=== PATIENT | male | born 2000 | race Caucasian/White ===

== ENCOUNTER 2021-05-27 20:09 | Emergency (ER) | payer OTHER ==
[~2021-05-27] VITALS: Ht 170.2 cm; Wt 72.0 kg
[2021-05-27] MEDS ORDERED: LORAZEPAM 2MG/ML CPJ IV ONE (21:15)
[2021-05-27 22:16] LABS: BASOPHILS % 0.1 % (0.0-2.0); HEMATOCRIT. 39.9 % (42.0-52.0); LYMPHOCYTES % 10.2 % (20.0-50.0); MEAN CORPUSCULAR HEMOGLOBIN 31.1 pg (28.0-32.0); MEAN CORPUSCULAR VOLUME 88.7 fL (80.0-94.0); MEAN PLATELET VOLUME 11.2 fl (7.4-10.4); MONOCYTES % 8.4 % (2.0-8.0); NEUTROPHILS % 81.3 % (40.0-76.0); PLATELET 153 x1000/uL (130-400); RED CELL DISTRIBUTION WIDTH 12.8 % (11.6-14.6)
[2021-05-27 22:20] LABS: CHLORIDE 104 mEq/L (98-107)
[2021-05-27 22:27] LABS: *AMPHETAMINES SCREEN URINE NEGATIVE (NEGATIVE); *BARBITURATES SCREEN URINE NEGATIVE (NEGATIVE); *BENZODIAZEPINES SCREEN URINE NEGATIVE (NEGATIVE)
[2021-05-27 22:28] LABS: *COCAINE SCREEN URINE NEGATIVE (NEGATIVE); CANNABINOID URINE SCREEN NEGATIVE (NEGATIVE); METHADONE URINE SCREEN NEGATIVE (NEGATIVE); OPIATES URINE SCREEN NEGATIVE (NEGATIVE); PHENCYCLIDINE URINE SCREEN NEGATIVE (NEGATIVE)
[2021-05-28 00:10] VITALS: BP 104/65
== END 2021-05-28 00:22 | disposition home or self-care (01) ==
LOC: ER 20:09
DX: F41.0 Panic disorder [episodic paroxysmal anxiety] (principal); R00.0 Tachycardia, unspecified; R07.89 Other chest pain
CPT/HCPCS: 36415; 71045; 80053; 80305; 83605; 83735; 83880; 84443; 84484; 85025; 93005; 96374; 99285; J2060